=== PATIENT | male | born 1975 | race Caucasian/White ===

== ENCOUNTER 2021-04-16 09:29 | Emergency (ER) | payer OTHER, BC, SELFPAY ==
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
[2021-04-16 09:28] VITALS: BP 187/102; PULSE 86; RESP 16; TEMP 37; O2SAT 99
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
[2021-04-16] MEDS: IBUPROFEN 600 MG TABLET PO (09:45)
[2021-04-16] MEDS: CYCLOBENZAPRINE HCL 10 MG TABLET PO (09:45)
== END 2021-04-16 11:20 | disposition home or self-care (01) ==
PROVIDERS: Emergency Provider Nurse Practitioner Family
DX: S29.012A Strain of muscle and tendon of back wall of thorax, initial encounter (principal); S16.1XXA Strain of muscle, fascia and tendon at neck level, initial encounter; I10 Essential (primary) hypertension; V49.40XA Driver injured in collision with unspecified motor vehicles in traffic accident, initial encounter; M47.812 Spondylosis without myelopathy or radiculopathy, cervical region; M47.814 Spondylosis without myelopathy or radiculopathy, thoracic region
CPT/HCPCS: 72125; 72128; 99284; A9270

== ENCOUNTER 2022-03-08 07:36 | Outpatient (CLI) | payer BC, SELFPAY ==
[2022-03-08 08:23] LABS: Basophils Absolute Auto 0.1 K/mm3 (0.0-0.1); Basophils Percent Auto 0.8 % (0.2-1.2); Eosinophils Absolute Auto 0.5 K/mm3 (0-0.3); Eosinophils Percent Auto 7.5 % (0-4.4); Hemoglobin 22.8 g/dL (14.0-18.0); Immature Granulocyte Absolute 0.02 K/mm3 (0.00-0.031); Immature Granulocyte Percent A 0.3 % (0-0.5); Lymphocytes Absolute Auto 1.17 K/mm3 (0.9-3.2); Lymphocytes Percent Auto 17.8 % (18.3-44.2); Mean Corpuscular Hemoglobin 29.6 pg (26-34); Mean Corpuscular Volume 89.5 fl (80-100); Mean Platelet Volume 10.8 fl (7.4-10.4); Monocytes Absolute Auto 0.6 K/mm3 (0.1-0.6); Monocytes Percent Auto 8.8 % (2.6-8.5); Neutrophils Absolute Auto 4.3 K/mm3 (1.3-6.7); Neutrophils Percent Auto 64.8 % (45.5-73.1); Platelet Count Result 183 k/mm3 (150-375); Red Blood Count 7.71 M/mm3 (4.6-6.20); Red Cell Distribution Width 17.2 % (11.5-14.5); White Blood Count 6.6 K/mm3 (4.5-10.0)
[2022-03-08 08:43] LABS: Alanine Aminotransferase 56 U/L (6-50); Albumin Level 4.9 g/dL (3.5-5.1); Alkaline Phosphatase 84 U/L (38-126); Anion Gap 9 mmol/L (8-16); Aspartate Amino Transferase 56 U/L (17-59); Bilirubin,Total 0.9 mg/dL (0.2-1.3); Blood Urea Nitrogen 24 mg/dL (9-20); Calcium 9.5 mg/dL (8.4-10.2); Carbon Dioxide 30 mmol/L (22-30); Chloride 103 mmol/L (98-107); Cholesterol 251 mg/dL (0-200); Estimated Glomerular Filt Rate 41; Glucose 88 mg/dL (65-110); HDL Direct 26 mg/dL; Potassium 4.1 mmol/L (3.4-5.0); Sodium 142 mmol/L (137-145); Triglycerides 198 mg/dL (<150)
[2022-03-08 08:53] LABS: LDL Cholesterol Direct 172 mg/dL
[2022-03-08 09:13] LABS: Prostate Specific Antigen 0.7 ng/mL (< OR = 4.0)
[2022-03-12 21:50] LABS: DHEA-Sulfate 209 mcg/dL (70-495); Sex Hormone Binding Globulin 10 nmol/L (10-50)
[2022-03-14 22:51] LABS: Estradiol, Ultrasensitive 48 pg/mL (< OR = 29)
[2022-03-20 12:12] LABS: Testosterone Free 1015.8 pg/mL (46.0-224.0); Testosterone Total 2715 ng/dL (250-1100)
== END 2022-03-08 07:37 | disposition home or self-care (01) ==
PROVIDERS: Visit Provider Nurse Practitioner Adult Health
DX: R53.83 Other fatigue (principal); R53.1 Weakness; E78.5 Hyperlipidemia, unspecified; I10 Essential (primary) hypertension
CPT/HCPCS: 36415; 80053; 80061; 82627; 82670; 84153; 84270; 84402; 84403; 85025

== ENCOUNTER 2023-02-14 07:24 | Outpatient (CLI) | payer BC, SELFPAY ==
[2023-02-14 08:09] LABS: Basophils Absolute Auto 0.1 K/mm3 (0.0-0.1); Eosinophils Absolute Auto 0.4 K/mm3 (0-0.3); Eosinophils Percent Auto 6.8 % (0-4.4); Hemoglobin 20.9 g/dL (14.0-18.0); Immature Granulocyte Absolute 0.02 K/mm3 (0.00-0.031); Immature Granulocyte Percent A 0.3 % (0-0.5); Lymphocytes Absolute Auto 1.58 K/mm3 (0.9-3.2); Lymphocytes Percent Auto 25.4 % (18.3-44.2); Mean Corpuscular HGB Conc 34.3 g/dl (32-36); Mean Corpuscular Hemoglobin 30.6 pg (26-34); Mean Corpuscular Volume 89.4 fl (80-100); Mean Platelet Volume 10.7 fl (7.4-10.4); Monocytes Absolute Auto 0.4 K/mm3 (0.1-0.6); Monocytes Percent Auto 7.1 % (2.6-8.5); Neutrophils Absolute Auto 3.7 K/mm3 (1.3-6.7); Neutrophils Percent Auto 59.4 % (45.5-73.1); Platelet Count Result 148 k/mm3 (150-375); Red Blood Count 6.82 M/mm3 (4.6-6.20); Red Cell Distribution Width 13.9 % (11.5-14.5); White Blood Count 6.2 K/mm3 (4.5-10.0)
[2023-02-14 08:51] LABS: Iron 164 ug/dL (49-181)
[2023-02-14 08:57] LABS: Percent Iron Saturation 72 % (20-50)
[2023-02-14 09:05] LABS: Free T4 Free Thyroxine 1.24 ng/mL (0.78-2.19)
[2023-02-14 09:44] LABS: Alanine Aminotransferase 100 U/L (6-50); Albumin Level 4.6 g/dL (3.5-5.1); Alkaline Phosphatase 92 U/L (38-126); Anion Gap 11 mmol/L (8-16); Aspartate Amino Transferase 55 U/L (17-59); Bilirubin,Total 1.1 mg/dL (0.2-1.3); Blood Urea Nitrogen 25 mg/dL (9-20); Calcium 9.8 mg/dL (8.4-10.2); Carbon Dioxide 27 mmol/L (22-30); Chloride 103 mmol/L (98-107); Cholesterol 277 mg/dL (0-200); Estimated Glomerular Filt Rate 51; Glucose 84 mg/dL (65-110); HDL Direct 41 mg/dL; Potassium 4.3 mmol/L (3.4-5.0); Sodium 141 mmol/L (137-145); Triglycerides 195 mg/dL (<150)
[2023-02-14 09:51] LABS: LDL Cholesterol Direct 174 mg/dL
[2023-02-14 10:23] LABS: Prostate Specific Antigen 0.6 ng/mL (< OR = 4.0); Total Triiodothyronine (T3) 1.21 NG/ML (0.97-1.69)
[2023-02-17 11:43] LABS: DHEA-Sulfate 170 mcg/dL (70-495); Sex Hormone Binding Globulin 24 nmol/L (10-50)
[2023-02-19 13:47] LABS: FSH 17.8 mIU/mL (1.4-12.8); LH 5.9 mIU/mL (1.5-9.3)
[2023-02-21 00:22] LABS: Estradiol, Ultrasensitive 6 pg/mL (< OR = 29)
[2023-02-21 12:55] LABS: Testosterone Free 145.2 pg/mL (35.0-155.0); Testosterone Total 651 ng/dL (250-1100)
== END 2023-02-14 07:25 | disposition home or self-care (01) ==
LOC: ANHLAB 07:26
PROVIDERS: Visit Provider Nurse Practitioner Adult Health
DX: R71.8 Other abnormality of red blood cells (principal); I10 Essential (primary) hypertension; R53.1 Weakness; R53.83 Other fatigue; Z12.5 Encounter for screening for malignant neoplasm of prostate
CPT/HCPCS: 36415; 80053; 80061; 82627; 82670; 82728; 83001; 83002; 83540; 83550; 84153; 84270; 84402; 84403; 84439; 84443; 84480; 85025; G0103

== ENCOUNTER 2024-03-16 07:54 | Outpatient (CLI) | payer BC, SELFPAY ==
[2024-03-16 08:34] LABS: Basophils Absolute Auto 0.1 K/mm3 (0.0-0.1); Basophils Percent Auto 0.9 % (0.2-1.2); Eosinophils Absolute Auto 0.6 K/mm3 (0-0.3); Eosinophils Percent Auto 10.6 % (0-4.4); Hematocrit 58.7 % (42.0-52.0); Immature Granulocyte Absolute 0.02 K/mm3 (0.00-0.031); Immature Granulocyte Percent A 0.3 % (0-0.5); Lymphocytes Absolute Auto 1.31 K/mm3 (0.9-3.2); Lymphocytes Percent Auto 22.4 % (18.3-44.2); Mean Corpuscular HGB Conc 34.1 g/dl (32-36); Mean Corpuscular Hemoglobin 30.5 pg (26-34); Mean Corpuscular Volume 89.6 fl (80-100); Monocytes Absolute Auto 0.5 K/mm3 (0.1-0.6); Monocytes Percent Auto 8.2 % (2.6-8.5); Neutrophils Absolute Auto 3.4 K/mm3 (1.3-6.7); Neutrophils Percent Auto 57.6 % (45.5-73.1); Platelet Count Result 144 k/mm3 (150-375); Red Blood Count 6.55 M/mm3 (4.6-6.20); Red Cell Distribution Width 13.6 % (11.5-14.5); White Blood Count 5.9 K/mm3 (4.5-10.0)
[2024-03-16 08:43] LABS: Alanine Aminotransferase 47 U/L (6-50); Albumin Level 4.6 g/dL (3.5-5.1); Alkaline Phosphatase 106 U/L (38-126); Anion Gap 11 mmol/L (4-12); Aspartate Amino Transferase 45 U/L (17-59); Bilirubin,Total 0.9 mg/dL (0.2-1.3); Blood Urea Nitrogen 26 mg/dL (9-20); Calcium 9.6 mg/dL (8.4-10.2); Carbon Dioxide 26 mmol/L (22-30); Chloride 102 mmol/L (98-107); Cholesterol 216 mg/dL (0-200); Estimated Glomerular Filt Rate 48; Glucose 85 mg/dL (65-110); HDL Direct 32 mg/dL; Potassium 4.1 mmol/L (3.4-5.0); Sodium 139 mmol/L (137-145); Triglycerides 216 mg/dL (<150)
[2024-03-16 08:54] LABS: LDL Cholesterol Direct 136 mg/dL
[2024-03-16 09:14] LABS: Prostate Specific Antigen 0.7 ng/mL (< OR = 4.0); Total Triiodothyronine (T3) 1.28 NG/ML (0.97-1.69)
[2024-03-16 09:15] LABS: Free T4 Free Thyroxine 1.12 ng/dL (0.78-2.19)
[2024-03-16 09:47] LABS: Hepatitis C Virus Antibody Negative (Negative)
--- OUTSIDE RECORDS SUMMARY | 2024-03-18 15:52 | XMS_ITS | Clinical Summary ---
Author Organization [facility] Address [address] [place] [address]. [place], [place] [id number] [place] [id number] Care Team Providers Care Lime Trimmer Name Role Phone Shin Sosa MD Primary Care Provider [phone] Allergies No known active allergies Medications anastrozole (ARIMIDEX) 1 MG tablet TAKE ONE-HALF TABLET BY MOUTH TWICE WEEKLY ON FRIDAY AND Friday05/20/2023 Active lisinopril (PRINIVIL) 40 MG tabletIndicatio ns:Hypertension , essential Take 1 tablet (40 mg total) by mouth daily. 90 tablet 1 06/03/2023 Active Active Problems No known active problems Social History Tobacco Use Types Packs/Day Years Used Date Smoking Tobacco: Never Smokeless Tobacco: Never Tobacco Cessation:Counseling Given: No Alcohol Use Standard Drinks/Week Comments Not Currently 0 (1 standard drink = 0.6 oz pur e alcohol) PHQ-2 Answer Date Recorded Patient Health Questionnaire-2 Score 0 06/03/2023 Sex and Gender Information Value Date Recorded Sex Assigned at Not on file Legal Sex Male 2:54 PM CDT Gender Identity Not on file Sexual Orientation Not on file Last Filed Vital Signs Vital Sign Reading Time Taken Comments Blood Pressure 186/146 06/03/2023 2:22 PM CDT Pulse 95 06/03/2023 2:15 PM CDT Temperature 37.6 ??C (99.7 ??F) 06/03/2023 2:15 PM CD T Respiratory Rate 16 06/03/2023 2:15 PM CDT Oxygen Saturation 97% 06/03/2023 2:15 PM CDT Inhaled Oxygen Concentration - - Weight 108.4 kg (239 lb) 06/03/2023 2:15 PM CDT Height 177.8 cm (5' 10 ) 06/03/2023 2:15 PM CDT Body Mass Index 34.29 06/03/2023 2:15 PM CDT Plan of Treatment Health Maintenance Due Date Last Done Comments Colorectal Cancer Screening Colonoscopy (10 Years) 1977 Annual Physical 1980 Hepatitis C 11/20/1995 DTaP, Tdap and Td Vaccines ( 1 - Tdap) 1996 Hepatitis B Vaccines (1 of 3 - 19+ 3-dose series) 1996 COVID-19 Vaccine (3 - 2023-2 5 season) 2023 11/14/2020, 10/23/2020 Influenza Adult (#1) 2023 PHQ-2 (Physician [place]) 06/02/2024 06/03/2023 Meningococcal B Vaccine Aged Out No l onger eligible based on patient's age to complete this topic Meningococcal Vaccine Aged Out No abilio keith eligible based on patient's age to complete this topic Pneumococcal Vaccine: Pediatrics (0 to 5 Years) and At-Risk Patients (6 to 64 Years) Aged Out No longer eligible b ased on patient's age to complete this topic RSV Immunizations Under 20 Months Aged Out No longer eligible b ased on patient's age to complete this topic Insurance Care Teams Lime Trimmer Relationship Specialty [place] [id number] [address] PCP - General INTERNAL MEDICINE 09/15/23
--- OUTSIDE RECORDS SUMMARY | 2024-03-18 15:52 | XMS_ITS | Clinical Summary ---
Author Organization [facility] Address [address] [place] [address] Care Team Providers Care Servicenow Administrator Developer Name Role Phone Rashel Cool MD Primary Care Provider Allergies No known active allergies Medications amLODIPine (NORVASC) 5 mg tablet Take 5 mg by mouth 2 (two) times a day 04/12/2021 Active lisinopril-hydro CHLOROthiazide (ZESTORETIC) 20-12.5 mg per tablet Take 1 tablet by mouth daily 04/05/2021 Active Active Problems Problem Noted Date Diagnosed Date Optic neuropathy, bilateral 05/02/2021 Retinal macular atrophy 05/02/2021 Medical History Medical History Date Comments Hypertension Family History Medical History Relation Name Comments Hypertension Father Hypertension Mother Relation Name Status Comments Father Mother Social History Tobacco Use Types Packs/Day Years Used Date Smoking Tobacco: Never Smokeless Tobacco: Never Tobacco Cessation:Counseling Given: Yes Personal Safety Answer Date Recorded Getting School Help Needed Not on file 05/10 Education Answer Date Recorded What is the highest level of school you have completed or the highest degree you have received? 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 Gender Identity Not on file Sexual Orientation Not on file Obstetrics History Plan of Treatment Health Maintenance Due Date Last Done Comments Colon Cancer Screening-Colonoscopy 1977 Depression Screening 1977 Hepatitis C Screening 1977 DTaP/Tdap/Td Vaccine (1 - Tdap) 1988 Hepatitis B Screening 11/20/1995 Regular Well Visit/Exam 18-64 11/20/1995 Influenza Vaccine (#1) 2023 HPV Vaccines Aged Out No longer eligi ble based on patient's age to complete this topic Pneumococcal vaccine <65 Aged Out No longer eligible based on patient's age to complete this topic Insurance [facility] Care Teams Servicenow Administrator Developer Relationship Specialty Start Date End Date Rashel Cool MD [address] [address] PCP - General 05/02/21
--- OUTSIDE RECORDS SUMMARY | 2024-03-18 15:52 | XMS_ITS | Referral Summary ---
Author Organization [facility] Address [address] [place] [address] Care Team Providers Care Floor Coverer Apprentice Name Role Phone Rashel Cool MD Primary Care Provider Allergies No known active allergies Medications amLODIPine (NORVASC) 5 mg tablet Take 5 mg by mouth 2 (two) times a day 04/12/2021 Active lisinopril-hydro CHLOROthiazide (ZESTORETIC) 20-12.5 mg per tablet Take 1 tablet by mouth daily 04/05/2021 Active Active Problems Problem Noted Date Diagnosed Date Optic neuropathy, bilateral 05/02/2021 Retinal macular atrophy 05/02/2021 Social History Tobacco Use Types Packs/Day Years [...] on file 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
== END 2024-03-16 07:55 | disposition home or self-care (01) ==
LOC: ANHLAB 07:55
PROVIDERS: Visit Provider Registered Nurse
DX: Z12.5 Encounter for screening for malignant neoplasm of prostate (principal); Z11.59 Encounter for screening for other viral diseases; R53.83 Other fatigue; E29.1 Testicular hypofunction
CPT/HCPCS: 36415; 80053; 80061; 84153; 84402; 84403; 84439; 84443; 84480; 85025; 86803; G0103